=== PATIENT | male | born 2000 | race Caucasian/White ===

== ENCOUNTER 2021-05-26 16:35 | Outpatient (CLI) | payer BC ==
[2021-05-27 18:06] LABS: SARS-CoV-2 PCR by NAA Not Detected (NotDetected)
== END 2021-05-26 16:36 | disposition home or self-care (01) ==
LOC: LABBT 16:35
PROVIDERS: ATTEND Otolaryngology Plastic Surgery within the Head & Neck
DX: Z01.812 Encounter for preprocedural laboratory examination (principal); Z20.822 Contact with and (suspected) exposure to COVID-19
CPT/HCPCS: U0003; U0005

== ENCOUNTER 2021-05-28 06:29 | Day surgery (SDC) | payer BC ==
[2021-05-21 13:09] VITALS: BMI 20.4
[2021-05-28] MEDS ORDERED: Fentanyl 250 MCG/5 ML VIAL ONE (06:50)
[2021-05-28] MEDS ORDERED: Acetaminophen 500 MG TAB ONE (07:27)
[2021-05-28] MEDS ORDERED: Ferric Subsulfate (ASTRINGYN) 8 GM VIAL ONE (07:55)
[2021-05-28] MEDS ORDERED: Dexamethasone 20 MG/5 ML VIAL ONE (07:57)
[2021-05-28] MEDS ORDERED: Lidocaine 1% PF 5 ML VIAL ONE (07:57)
[2021-05-28] MEDS ORDERED: PROPOFOL 200 MG/20 ML VIAL ONE (07:57)
[2021-05-28] MEDS ORDERED: Ondansetron PF 4 MG/2 ML Vial ONE (07:57)
[2021-05-28] MEDS ORDERED: methylPREDNISolone Acetate 40 mg/ml Vial ONE (08:12)
[2021-05-28] MEDS ORDERED: Fentanyl 100 MCG/2 ML VIAL ONE (08:23)
[2021-05-28] MEDS ORDERED: Ibuprofen 100 MG/5 ML UDCUP ONE (09:57)
== END 2021-05-28 10:40 | disposition home or self-care (01) ==
LOC: SDC 06:29
PROVIDERS: ATTEND Otolaryngology Plastic Surgery within the Head & Neck
PROC: 0CTQXZZ Resection of Adenoids, External Approach (ICD-10-PCS; principal; 2021-05-28)
PROC: 0CTPXZZ Resection of Tonsils, External Approach (ICD-10-PCS; principal; 2021-05-28)
DX: J35.03 Chronic tonsillitis and adenoiditis (principal)
CPT/HCPCS: 88304; J1100; J2405; J2704; J2920; J3010